=== PATIENT | female | born 1945 | race American Indian/Alaskan Native ===

== ENCOUNTER 2016-12-19 08:47 | Emergency (ER) | payer MEDICARE ==
--- NOTE | 2016-12-19 09:04 | Emergency Department Report ---
HPI - General Chief Complaint: Altered Mental Status Time Seen by Provider: 12/19/16 09:02 - HPI HPI: This is a 71 year-old female presents to the emergency department by EMS from home with complaint of some altered mental status. Family says that the last time she was at her normal baseline status was sometime yesterday. They attempted to wake her up and she was hard to arouse so EMS was called. EMS was able to sit the patient up and she was responsive but still altered. In route the patient appeared to worsen with her altered mental status and/or lethargy and appeared to develop a sided facial droop. She has a past medical history of CHF and [id number] diabetes. No previous CVA, [place], PE/DVT. The patient does have a history of atrial fibrillation and takes warfarin. She is a poor historian secondary to her current medical condition. ED Past Medical Hx - Past Medical History Previous Medical History?: Yes Hx Hypertension: Yes () Hx CVA: Yes (2 strokes) Hx Congestive Heart Failure: Yes Hx Diabetes: Yes Hx Deep Vein Thrombosis: Yes Additional medical history: Hypothyroidism, on Synthroid. Atrial fibrillation on Coumadin - Surgical History Past Surgical History?: Yes Additional Surgical History: thyroidectomy - Social History Smoking Status: Former Smoker Substance Use Type: None - Medications Home Medications: Home Medications Medication Instructions Recorded Confirmed Last Taken Type Levothyroxine [Synthroid] 75 mcg PO QAM 03/04/13 10/13/16 Unknown History Simvastatin 20 mg PO QHS 03/04/13 10/13/16 Unknown History Hydrochlorothiazide [Hctz] 12.5 mg PO QDAY #30 capsule 10/21/16 Unknown Rx Metoprolol [Lopressor TAB] 25 mg PO BID #30 tablet 10/21/16 Unknown Rx Warfarin [Coumadin] 2 mg PO QDAY #30 tablet 10/21/16 Unknown Rx amLODIPine [Norvasc] 10 mg PO QDAY #30 tablet 10/21/16 Unknown Rx ED Review of Systems ROS: Stated complaint: ALTERED LOC Other details as noted in HPI Comment: Unobtainable due to pts medical conditions Physical Exam - Physical Exam Physical Exam: GENERAL: Patient is ill-appearing. HENT: Normocephalic. Atraumatic. Patient has moist mucous membranes. EYES: Pupils equal reactive to light bilaterally. She will open her eyes only with repeated verbal stimuli. NECK: Supple. Trachea is midline. CHEST/LUNGS: Clear to auscultation. There is no respiratory distress noted. HEART/CARDIOVASCULAR: Regular. There is no tachycardia. There is no gallop rub or murmur. ABDOMEN: Abdomen is soft, nontender. Patient has normal bowel sounds. There is no abdominal distention. SKIN: Skin is warm and dry. NEURO: Patient is lethargic and altered. With painful and verbal stimuli she will follow a few commands including holding her arms above the gurney and wiggling her toes. Nonverbal. There appears to be a left-sided facial droop. GCS of 9. MUSCULOSKELETAL: There is no tenderness or deformity. There is no evidence of acute injury. ED Course - Consultations Consultation #1: [facility] contacted for possible transfer for CVA / Neurosurgery. 12/19/16 09:23 12/19/16 09:47 The patient was accepted for transfer to [facility] by Dr. luz, neurosurgery. I then spoke to Dr. Lei in the ICU. He asked for the patient to receive KCentra which we do have and should be on its way up from the pharmacy. The patient is intubated. Helicopter transportation is on the way. - Intubation Time Out Performed: Yes Sedative: Etomidate Mg Given: 20 Paralytic: Rocuronium Mg Given: 100 Laryngoscope: fiberoptic video scope (glydescope) Size: 4 ET Tube Size: 7.5 Tube Secured Depth (cm): 22 Tube Secured Location: lips Tube Placement Confirmation: visualized tube passing t, equal breath sounds bilat, no breath sounds over epi, confirmation by capnometr Patient Tolerated Procedure: well Intubation Complications: none ED Medical Decision Making - Lab Data Result diagrams: 12/19/16 09:05 12/19/16 09:05 - Radiology Data Radiology results: report reviewed, image reviewed interpreted by me: Chest x-ray shows appropriate position of the endotracheal tube. No obvious pneumonia or pleural effusions. EXAM: CT HEAD/BRAIN WO CON HISTORY: neuro deficits T lt; 6hrs or sx present upon awakening TECHNIQUE: CT of the head was performed. No intravenous contrast was administered. PRIORS: None. FINDINGS: There is intraventricular hemorrhage. Ventricles are mildly enlarged. I cannot confirm any parenchymal hemorrhage. There is periventricular low attenuation which may reflect subependymal flow of CSF and/or edema. There mild to moderate cerebral atrophy. There is no midline shift. There is an old lacunar infarct in the right thalamus and in the right basal ganglia. There is an old infarct involving the left caudate. IMPRESSION: Diffuse intraventricular hemorrhage with mild ventricular enlargement. Low-attenuation within the periventricular white matter likely reflects some subependymal flow mole flow of CSF or periventricular edema. A parenchymal hemorrhage is not identified. - Medical Decision Making 71-year-old female presents to the emergency department with some altered mental status and lethargy. She is following some commands but requires verbal and painful stimuli for a few basic commands. She appears to have a left-sided facial droop. She went for a stat CT scan of the head came back showing a diffuse intraventricular bleed. Patient was 8-9 GCS she first arrived but started to become more lethargic and there was concern for airway compromise. For this reason she was intubated using a Glydescope without any complications. Family eventually came bedside and they were updated about her diagnosis and need for transfer for neurosurgical services. Her labs came back showing a INR of 5.5. I spoke to [facility] including the neurosurgeon and critical care attending. They have accepted patient for transfer. It was recommended to give 10 mg of IV vitamin K as well as K Sentra. These were both given and/or started. Air ambulance is currently here about to transport to [facility]. - Differential Diagnosis hemorrhagic CVA, ischemic CVA, dementia, hypoglycemia Critical Care Time: Yes Critical care time in (mins) excluding proc time.: 35 Critical care attestation.: If time is entered above; I have spent that time in minutes in the direct care of this critically ill patient, excluding procedure time. Critical care time spent on this patient during her initial evaluation, multiple re-evaluations, ordering interpretation of labs and imaging, discussion with family, discussion with the neurosurgeon and critical care attending. This does not include the time spent doing the intubation procedure. Critical Care Time: 35 minutes ED Disposition Clinical Impression: Hemorrhagic cerebrovascular accident (CVA), Supratherapeutic INR, Hyperglycemia , Renal insufficiency Disposition: DC/TX-[id number] ANOTHER TYPE HLTHCARE Is pt being admited?: Yes Condition: Critical Referrals: PRIMARY CARE, [Primary Care Provider] - 3-5 Days Time of Disposition: 10:35
[2016-12-19] MEDS ORDERED: AMIDATE IV ONE (09:12)
[2016-12-19] MEDS ORDERED: ZEMURON IV ONE (09:12)
[2016-12-19] MEDS ORDERED: NACL 0.9% 1000 ML 1,000 ML ONE (09:13)
[2016-12-19 09:15] LABS: Basophils % (Auto) 0.3 % (0.0-1.8); Mean Corpuscular HGB Conc 33 % (30-34); Mean Corpuscular Volume 78 fl (79-97); Platelet Count 129 K/mm3 (140-440); Red Blood Count 4.74 M/mm3 (3.65-5.03); Red Cell Distribution Width 17.4 % (13.2-15.2); White Blood Count 7.3 K/mm3 (4.5-11.0)
--- NOTE | 2016-12-19 09:17 | Cat Scan Report ---
FINAL REPORT EXAM: CT HEAD/BRAIN WO CON HISTORY: neuro deficits \T\lt; 6hrs or sx present upon awakening TECHNIQUE: CT of the head was performed. No intravenous contrast was administered. PRIORS: None. FINDINGS: There is intraventricular hemorrhage. Ventricles are mildly enlarged. I cannot confirm any parenchymal hemorrhage. There is periventricular low attenuation which may reflect subependymal flow of CSF and/or edema. There mild to moderate cerebral atrophy. There is no midline shift. There is an old lacunar infarct in the right thalamus and in the right basal ganglia. There is an old infarct involving the left caudate. IMPRESSION: Diffuse intraventricular hemorrhage with mild ventricular enlargement. Low-attenuation within the periventricular white matter likely reflects some subependymal flow mole flow of CSF or periventricular edema. A parenchymal hemorrhage is not identified. Nurse Obed Stokes was informed of findings on 12/19/2016 at 9:15 a.m. EST.
[2016-12-19 09:20] LABS: Mean Corpuscular Hemoglobin 25 pg (28-32)
[2016-12-19 09:27] LABS: Anion Gap 27 mmol/L; BUN/Creatinine Ratio 21.17; Blood Urea Nitrogen 36 mg/dL (7-17); Carbon Dioxide 17 mmol/L (22-30); Chloride 96.2 mmol/L (98-107); Glucose 281 mg/dL (65-100); Potassium 3.8 mmol/L (3.6-5.0); Sodium 136 mmol/L (137-145)
[2016-12-19 09:30] LABS: Partial Thromboplastin Time 52.9 Sec. (24.2-36.6)
[2016-12-19] MEDS ORDERED: VITAMIN K (ADULT ONLY) 10 MG in NACL 0.9% 50 ML IV ONE (09:33)
[2016-12-19] MEDS ORDERED: NACL 0.9% 500 ML 500 ML IV ONE (09:34)
[2016-12-19 09:43] LABS: INR 5.49 (0.87-1.13)
--- NOTE | 2016-12-19 09:45 | XRay Report ---
AP CHEST: HISTORY: CVA Compared to 10/18/16. An endotracheal tube has been inserted which terminates 2.5 cm from the aurelia. The lungs are adequately aerated. No consolidation, large pleural effusion or pneumothorax. Mild cardiomegaly and mild central pulmonary venous congestion are identified. IMPRESSION: Adequate placement of the endotracheal tube. Mild cardiomegaly and central pulmonary venous congestion.
[2016-12-19] MEDS ORDERED: KCENTRA IV ONE (10:00)
[2016-12-19 10:18] VITALS: BP 144/87
== END 2016-12-19 11:00 | disposition other institution (70) ==
LOC: ED 08:47
DX: I63.9 Cerebral infarction, unspecified (principal); N28.9 Disorder of kidney and ureter, unspecified; E11.65 Type 2 diabetes mellitus with hyperglycemia; I10 Essential (primary) hypertension; E03.9 Hypothyroidism, unspecified
CPT/HCPCS: 31500; 36415; 51702; 70450; 71010; 80048; 84484; 85025; 85610; 85670; 85730; 86850; 86900; 86901; 96361; 96365; 99291; J3430; J7030; J7195; 94002